=== PATIENT | female | born 1990 | race African-American/Black ===

== ENCOUNTER 2017-10-11 23:17 | Emergency (ER) | payer MEDICAID ==
[~2017-10-11] VITALS: Ht 177.8 cm; Wt 136.0 kg
[2017-10-12 04:30] VITALS: BP 128/74
== END 2017-10-12 05:00 | disposition left against medical advice (07) ==
LOC: ER 23:17
DX: R68.84 Jaw pain (principal); Z53.21 Procedure and treatment not carried out due to patient leaving prior to being seen by health care provider

== ENCOUNTER 2019-12-27 19:05 | Emergency (ER) | payer SELFPAY ==
[~2019-12-27] VITALS: Ht 175.3 cm; Wt 5.0 kg
[2019-12-27] MEDS ORDERED: KETOROLAC 60MG/2ML VIAL IM STA (21:10)
[2019-12-27] MEDS ORDERED: AMOXICILLIN/POTASSIUM CLAVULANATE 875/125MG TAB PO ONE (21:15)
[2019-12-27 22:04] VITALS: BP 160/90
== END 2019-12-27 22:04 | disposition home or self-care (01) ==
LOC: ER 19:05
DX: S00.83XA Contusion of other part of head, initial encounter (principal); K04.7 Periapical abscess without sinus; X58.XXXA Exposure to other specified factors, initial encounter; Y93.89 Activity, other specified; Y92.89 Other specified places as the place of occurrence of the external cause; Y99.8 Other external cause status; I10 Essential (primary) hypertension
CPT/HCPCS: 81025; 96372; 99283; J1885

== ENCOUNTER 2023-07-08 07:35 | Emergency (ER) | payer MEDICAID ==
[~2023-07-08] VITALS: Ht 175.3 cm; Wt 174.0 kg
[2023-07-08 07:42] VITALS: O2SAT 100
[2023-07-08] MEDS ORDERED: ONDANSETRON 4MG ODT PO ONE ×2 (08:30→10:15)
[2023-07-08] MEDS ORDERED: ONDA8TAB13 MT (10:54)
[2023-07-08 11:15] VITALS: BP 134/89; PULSE 74; RESP 20; TEMP 98.1
== END 2023-07-08 11:16 | disposition home or self-care (01) ==
LOC: ER 07:35
DX: R19.7 Diarrhea, unspecified (principal); I10 Essential (primary) hypertension
CPT/HCPCS: 81025; 99283; Q0162; Z7610